=== PATIENT | female | born 1980 | race Hispanic/Latino ===

== ENCOUNTER 2022-11-11 09:47 | Emergency (ER) | payer BC, OTHER ==
[~2022-11-11] VITALS: Ht 154.9 cm; Wt 67.8 kg
[2022-11-11] MEDS: SODIUM CHLORIDE 0.9% 1000ML 1,000 ML IV SCH (11:04)
== END 2022-11-11 12:32 | disposition home or self-care (01) ==
LOC: FSED 09:58
DX: R06.02 Shortness of breath (principal); R07.9 Chest pain, unspecified; G47.00 Insomnia, unspecified
CPT/HCPCS: 71046; 80053; 81003; 81025; 82553; 84484; 85025; 85379; 93005; 99284; J7030